=== PATIENT | male | born 1985 | race Caucasian/White ===

== ENCOUNTER 2019-07-05 18:27 | Emergency (ER) | payer MEDICARE, MEDICAID, SELFPAY ==
[2019-07-05] VITALS (7 sets, daily range): BP systolic 92–136; BP diastolic 62–81; PULSE 67–98; RESP 10–18; TEMP 36.5; O2SAT 97–100
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
== END 2019-07-05 23:19 | disposition home or self-care (01) ==
PROVIDERS: Emergency Provider Emergency Medicine
DX: T65.91XA Toxic effect of unspecified substance, accidental (unintentional), initial encounter (principal); F17.210 Nicotine dependence, cigarettes, uncomplicated; F15.90 Other stimulant use, unspecified, uncomplicated
CPT/HCPCS: 99283